=== PATIENT | female | born 1975 | race Caucasian/White ===

== ENCOUNTER 2017-04-18 12:31 | Emergency (ER) | payer OTHER ==
[~2017-04-18] VITALS: Ht 172.7 cm; Wt 101.4 kg
[2017-04-18 12:34] VITALS: BP 143/64; TEMP 98.9
[2017-04-18] MEDS ORDERED: GLUMETZA1000 MG PO (13:06)
[2017-04-18] MEDS ORDERED: PROTONIX 40MG T40 MG PO (13:07)
[2017-04-18] MEDS ORDERED: CARAFATE 1GM1 G PO (13:07)
[2017-04-18] MEDS ORDERED: ZOLOFT 100MG100 MG PO (13:07)
[2017-04-18] MEDS ORDERED: KLONOPIN 0.5MG0.5 MG PO (13:08)
[2017-04-18 13:49] LABS: BASO % 0.3 % (0.0-2.0); EOS # 0.1 (0.0-0.7); GRAN # 3.8 (1.4-6.5); GRAN % 62.1 % (42.2-75.2); LYMPH # 1.9 (1.2-3.4); LYMPH % 30.5 % (20.0-51.0); MEAN CELL VOLUME 87 fl (80.0-100.0); MEAN CORPUSCULAR HGB CONC 34 g/dl (33.0-37.0); MEAN PLATELET VOLUME 8.9 fl (7.4-10.4); MONO # 0.4 (0.1-0.6); MONO % 5.8 % (1.7-9.3); PLATELET COUNT 257 K/mm3 (130-400); RED BLOOD COUNT 3.89 M/mm3 (4.10-5.30); REDCELL DISTRIBUTION WIDTH-CV 12.1 % (11.5-14.5); WHITE BLOOD COUNT 6.2 K/mm3 (4.8-10.8)
[2017-04-18 13:50] LABS: HEMATOCRIT 33.7 % (37.0-47.0); HEMOGLOBIN 11.3 g/dl (12.5-16.0); MEAN CORPUSCULAR HEMOGLOBIN 29 pg (27.0-31.0)
[2017-04-18] MEDS ORDERED: ALLEGRA 180MG180 MG PO (13:53)
[2017-04-18] MEDS ORDERED: ZYRTEC-D 5 MG-11 TER PO (13:54)
[2017-04-18] MEDS ORDERED: PROSOM2 MG (13:54)
[2017-04-18] MEDS ORDERED: MAXALT MLT10 MG/TAB PO (13:56)
[2017-04-18 14:01] LABS: ADJUSTED CALCIUM 9.1 mg/dL (8.4-10.2); ALBUMIN 4.4 gm/dL (3.5-5.0); BILIRUBIN,TOTAL 0.3 mg/dL (0.0-1.0); CALCIUM 9.4 mg/dL (8.4-10.2); CREATININE, serum 0.51 mg/dL (0.52-1.25); TOTAL PROTEIN 7.3 gm/dL (6.4-8.2)
[2017-04-18 14:08] LABS: POTASSIUM 2.8 mmol/L (3.4-5.0)
[2017-04-18 14:45] LABS: PH 6 (5-8); URINE APPEARANCE Cloudy; URINE BACTERIA Many /hpf; URINE BILIRUBIN Negative (NEGATIVE); URINE BLOOD Negative (NEGATIVE); URINE COLOR Yellow; URINE GLUCOSE Negative (NEGATIVE); URINE KETONE Negative (NEGATIVE); URINE UROBILINOGEN Negative (NEGATIVE)
[2017-04-18] MEDS ORDERED: PHENERGAN 25 TA25 MG PO (15:24)
[2017-04-18] MEDS ORDERED: ZOFRAN ODT4 MG PO (15:24)
[2017-04-18] MEDS ORDERED: K-DUR20 MEQ PO (15:26)
[2017-04-18 17:19] VITALS: PULSE 66
== END 2017-04-18 17:20 | disposition home or self-care (01) ==
LOC: COL.ER 12:31
PROVIDERS: Physician Assistant
DX: R10.84 Generalized abdominal pain (principal); R19.7 Diarrhea, unspecified; F32.9 Major depressive disorder, single episode, unspecified; F41.9 Anxiety disorder, unspecified; Z98.84 Bariatric surgery status; Z90.49 Acquired absence of other specified parts of digestive tract; Z98.890 Other specified postprocedural states
CPT/HCPCS: J1170; J2405; J2550; J3480; J7030

== ENCOUNTER 2017-04-21 13:47 | Day surgery (SDC) | payer OTHER ==
[~2017-04-21] VITALS: Ht 172.7 cm; Wt 104.5 kg
[~2017-04-21 13:47] MED LIST: ALLEGRA 180MG180 MG PO; CARAFATE 1GM1 G PO; GLUMETZA1000 MG PO; K-DUR20 MEQ PO; KLONOPIN 0.5MG0.5 MG PO; MAXALT MLT10 MG/TAB PO; PHENERGAN 25 TA25 MG PO; PROSOM2 MG; PROTONIX 40MG T40 MG PO; ZOFRAN ODT4 MG PO; ZOLOFT 100MG100 MG PO; ZYRTEC-D 5 MG-11 TER PO
[2017-04-21] MEDS ORDERED: NORCO 325 MG-7.1 TAB (14:45)
[2017-04-21] MEDS ORDERED: VANCOCIN H250 MG/CAP PO (14:45)
[2017-04-21 14:46] VITALS: BP 153/92; PULSE 81; TEMP 97.7
[2017-04-21 15:58] VITALS: BP 142/83; PULSE 81; TEMP 97.9
[2017-04-21 16:13] VITALS: BP 122/77; PULSE 83
[2017-04-21] MEDS ORDERED: COLESTID 1GM1 G PO (16:17)
[2017-04-21] MEDS ORDERED: LOMOTIL 0.025 M1 TAB PO (16:17)
[2017-04-21 16:28] VITALS: BP 130/89; PULSE 76
[2017-04-21 16:43] VITALS: BP 128/80; PULSE 70
== END 2017-04-21 16:59 | disposition home or self-care (01) ==
LOC: SDCO 13:47
DX: R10.9 Unspecified abdominal pain (principal); R19.7 Diarrhea, unspecified; R11.0 Nausea; R63.4 Abnormal weight loss; F41.8 Other specified anxiety disorders; E11.9 Type 2 diabetes mellitus without complications; Z90.49 Acquired absence of other specified parts of digestive tract; Z98.84 Bariatric surgery status; F32.9 Major depressive disorder, single episode, unspecified; K92.9 Disease of digestive system, unspecified
CPT/HCPCS: J2250; J3010; J7042

== ENCOUNTER → 2017-05-07 | Outpatient (CLI) | payer OTHER ==
[~2017-05-07] MED LIST changes: +COLESTID 1GM1 G PO; +LOMOTIL 0.025 M1 TAB PO; +NORCO 325 MG-7.1 TAB; +NORCO 325 MG-7.1 TAB PO; +PREDNISONE20 MG PO; +VANCOCIN H250 MG/CAP PO
== END ==
LOC: COL.RAD 09:00
DX: K52.9 Noninfective gastroenteritis and colitis, unspecified (principal); K63.89 Other specified diseases of intestine

== ENCOUNTER 2017-05-27 16:15 | Emergency (ER) | payer OTHER, BC ==
[~2017-05-27] VITALS: Ht 172.7 cm; Wt 100.5 kg
[~2017-05-27 16:15] MED LIST changes: -NORCO 325 MG-7.1 TAB PO; -PREDNISONE20 MG PO
[2017-05-27 16:17] VITALS: TEMP 98.8
[2017-05-27 17:08] LABS: BASO # 0.1 (0.0-0.2); BASO % 0.6 % (0.0-2.0); EOS # 0.1 (0.0-0.7); EOS % 0.7 % (0-4.0); GRAN # 5.3 (1.4-6.5); GRAN % 63.8 % (42.2-75.2); LYMPH # 2.4 (1.2-3.4); LYMPH % 29.4 % (20.0-51.0); MEAN CELL VOLUME 89 fl (80.0-100.0); MEAN CORPUSCULAR HGB CONC 32 g/dl (33.0-37.0); MONO # 0.5 (0.1-0.6); MONO % 5.4 % (1.7-9.3); PLATELET COUNT 245 K/mm3 (130-400); RED BLOOD COUNT 4.14 M/mm3 (4.10-5.30); REDCELL DISTRIBUTION WIDTH-CV 11.9 % (11.5-14.5); WHITE BLOOD COUNT 8.3 K/mm3 (4.8-10.8)
[2017-05-27 17:12] LABS: HEMATOCRIT 36.7 % (37.0-47.0); HEMOGLOBIN 11.9 g/dl (12.5-16.0); MEAN CORPUSCULAR HEMOGLOBIN 29 pg (27.0-31.0)
[2017-05-27 17:25] LABS: ADJUSTED CALCIUM 9.2 mg/dL (8.4-10.2); ALBUMIN 4.7 gm/dL (3.5-5.0); BILIRUBIN,TOTAL 0.5 mg/dL (0.0-1.0); C-REACTIVE PROTEIN 1.5 mg/dL (0.0-0.9); CALCIUM 9.8 mg/dL (8.4-10.2); CREATININE, serum 0.66 mg/dL (0.52-1.25); POTASSIUM 3.8 mmol/L (3.4-5.0)
[2017-05-27 17:45] LABS: PH 6 (5-8); SQUAMOUS EPITHELIAL 0-2 /hpf; URINE APPEARANCE Clear; URINE BACTERIA Rare /hpf; URINE BILIRUBIN Negative (NEGATIVE); URINE BLOOD Negative (NEGATIVE); URINE COLOR Straw; URINE GLUCOSE Negative (NEGATIVE); URINE KETONE Negative (NEGATIVE); URINE RBC 0-2 /hpf; URINE UROBILINOGEN Negative (NEGATIVE); URINE WBC 0-2 /hpf
[2017-05-27] MEDS ORDERED: NORCO 325 MG-7.1 TAB PO (17:48)
[2017-05-27] MEDS ORDERED: PREDNISONE20 MG PO (18:37)
[2017-05-27 18:45] VITALS: BP 129/81; PULSE 86
== END 2017-05-27 18:55 | disposition home or self-care (01) ==
LOC: COL.ER 16:15
PROVIDERS: Emergency Medicine
DX: R10.10 Upper abdominal pain, unspecified (principal); E11.9 Type 2 diabetes mellitus without complications; Z90.49 Acquired absence of other specified parts of digestive tract; Z79.84 Long term (current) use of oral hypoglycemic drugs
CPT/HCPCS: J1170; J2405; J7030; J7512

== ENCOUNTER 2018-11-20 17:24 | Emergency (ER) | payer OTHER ==
[~2018-11-20] VITALS: Ht 172.7 cm; Wt 100.0 kg
[~2018-11-20 17:24] MED LIST changes: +NORCO 325 MG-7.1 TAB PO; +PREDNISONE20 MG PO
[2018-11-20 18:02] VITALS: TEMP 98.6
[2018-11-20 22:16] LABS: BASO % 0.6 % (0.0-2.0); EOS # 0.2 (0.0-0.7); EOS % 2.9 % (0-4.0); GRAN # 3.7 (1.4-6.5); GRAN % 57.1 % (42.2-75.2); HEMATOCRIT 32.3 % (37.0-47.0); HEMOGLOBIN 10.6 g/dl (12.5-16.0); LYMPH # 2.2 (1.2-3.4); LYMPH % 33.1 % (20.0-51.0); MEAN CELL VOLUME 87 fl (80.0-100.0); MEAN CORPUSCULAR HEMOGLOBIN 29 pg (27.0-31.0); MEAN CORPUSCULAR HGB CONC 33 g/dl (33.0-37.0); MEAN PLATELET VOLUME 8.8 fl (7.4-10.4); MONO # 0.4 (0.1-0.6); MONO % 6.1 % (1.7-9.3); PLATELET COUNT 219 K/mm3 (130-400); RED BLOOD COUNT 3.71 M/mm3 (4.10-5.30); REDCELL DISTRIBUTION WIDTH-CV 13.2 % (11.5-14.5)
[2018-11-20 22:27] LABS: ALBUMIN 4.3 gm/dL (3.5-5.0); BILIRUBIN,TOTAL 0.3 mg/dL (0.0-1.0); CALCIUM 9.3 mg/dL (8.4-10.2); CREATININE, serum 0.63 mg/dL (0.52-1.25); POTASSIUM 3.1 mmol/L (3.4-5.0); TOTAL PROTEIN 7.9 gm/dL (6.4-8.2)
[2018-11-20 22:44] LABS: PROLACTIN 5.5 ng/mL (3.0-18.6)
[2018-11-21 01:25] VITALS: BP 169/99; PULSE 60
== END 2018-11-21 01:25 | disposition home or self-care (01) ==
LOC: COL.ER 17:24
PROVIDERS: Physician Assistant
DX: G43.909 Migraine, unspecified, not intractable, without status migrainosus (principal); R42 Dizziness and giddiness; R55 Syncope and collapse; Z90.710 Acquired absence of both cervix and uterus; Z79.84 Long term (current) use of oral hypoglycemic drugs
CPT/HCPCS: J1200; J1885; J2405; J7030